=== PATIENT | female | born 1985 | race Caucasian/White ===

== ENCOUNTER 2020-04-20 16:38 | Emergency (ER) | payer OTHER ==
--- NOTE | 2020-04-20 16:45 | PDOC ---
Rapid Medical Evaluation Chief Complaint: Head/Neck problem Time Seen by Provider: 04/20/20 16:43 Medical Evaluation: Allergies Allergy/AdvReac Type Severity Reaction Status Date / Time No Known Allergies Allergy Verified 07/19/15 07:32 04/20/20 16:43 Pt with PMH of migraines presents for evaluation of numbness to the L arm, L leg, L face and R foot since yesterday at 8pm. Exam: decreased sensation to the L side Orders: labs, IV, CT Pt to proceed to the ER for further evaluation Discharge Disposition - Diagnosis Numbness - Referrals Referrals: Lanre Kwong MD [Primary Care Provider] - - Patient Instructions - Post Discharge Activity
[2020-04-20 16:49] VITALS: BP 130/77; PULSE 94; TEMP 99.2; BMI 24.9
--- NOTE | 2020-04-20 20:01 | PDOC ---
History of Present Illness - General Chief Complaint: Head/Neck problem Stated Complaint: LEFT SIDE NUMBNESS, TINGLING Time Seen by Provider: 04/20/20 16:43 - History of Present Illness Initial Comments: 04/20/20 20:01 HPI: Patient denies fever, chills, night sweats, ELLIS, vision change, chest pain, palpitations, SOB, cough, leg swelling, abdominal pain, nausea, vomiting, diarrhea, constipation, dysuria, hematuria, BPR, lightheadedness, weakness, sensory changes. PMHx: as noted above ROS: as noted SHx: Denies tobacco use; no alcohol use; no rec drugs Allergies: NKDA ROS: GENERAL/CONSTITUTIONAL: No fever or chills. No weakness. HEAD, EYES, EARS, NOSE AND THROAT: No change in vision. No ear pain or discharge. No sore throat. CARDIOVASCULAR: No chest pain or shortness of breath RESPIRATORY: No cough, wheezing, or hemoptysis. GASTROINTESTINAL: No nausea, vomiting, diarrhea or constipation. GENITOURINARY: No dysuria, frequency, or change in urination. MUSCULOSKELETAL: No joint or muscle swelling or pain. No neck or back pain. SKIN: No rash NEUROLOGIC: No headache, vertigo, loss of consciousness, or change in strength/sensation. ENDOCRINE: No increased thirst. No abnormal weight change HEMATOLOGIC/LYMPHATIC: No anemia, easy bleeding, or history of blood clots. ALLERGIC/IMMUNOLOGIC: No hives or skin allergy. PE: GENERAL: Awake, alert, and fully oriented, no acute distress HEAD: No signs of trauma, normocephalic, atraumatic EYES: EOMI, sclera anicteric, conjunctiva clear ENT: Auricles normal inspection, hearing grossly normal, nares patent, oropharynx clear without exudates. Moist mucosa NECK: Normal ROM, no lymphadenopathy LUNGS: No increased work of breathing, symmetrical chest rise, clear to auscultation bilaterally, no wheezes, crackles or rhonchi HEART: Regular rate, regular rhythm, normal S1 and S2, no murmur, peripheral pulses 2+ and equal bilaterally. ABDOMEN: Soft, nondistended, nontender. No guarding, no rebound. No masses. No CVAT MUSCULOSKELETAL: FROM NEUROLOGICAL: Cranial nerves II through XII grossly intact. Normal speech, stable gait, no focal sensorimotor deficits SKIN: Warm, Dry, normal turgor, no rashes or lesions noted Past History - Medical History Allergies/Adverse Reactions: Allergies Allergy/AdvReac Type Severity Reaction Status Date / Time No Known Allergies Allergy Verified 04/20/20 16:46 Home Medications: Ambulatory Orders Vit/Iron Fum/Folic AC [ Tablet] 1 each PO DAILY 07/19/15 Ibuprofen [Motrin -] 600 mg PO TID #90 tablet 07/21/15 Asthma: No Cancer: No Cardiac Disorders: No COPD: No Diabetes: No HTN: No Seizures: No Thyroid Disease: No - Reproductive History Is Patient Now?: No - Psycho-Social/Smoking History Smoking History: Never smoked Have you smoked in the past 12 months: No Information on smoking cessation initiated: Yes - Substance Abuse Hx (Audit-C & DAST Scrn) How often the patient has a drink containing alcohol: Never Score: In Men: 4 or > Positive; In Women: 3 or > Positive: 0 Screen Result (Pos requires Nsg. Audit-10AR): Negative In the last yr the pt used illegal drug/Rx for NonMed reason: No Score: Yes response is considered Positive: 0 Screen Result (Positive result requires Nsg. DAST-10): Negative *Physical Exam - Vital Signs Last Vital Signs Temp Pulse Resp BP Pulse Ox 99.2 F 94 H 17 130/77 100 04/20/20 16:42 04/20/20 16:42 04/20/20 16:42 04/20/20 16:42 04/20/20 16:42 Discharge - Discharge Information Clinical Impression/Diagnosis: Numbness - Follow up/Referral Referrals: Lanre Kwong MD [Primary Care Provider] - - Patient Discharge Instructions - Post Discharge Activity
--- NOTE | 2020-04-20 20:42 | PDOC ---
History of Present Illness - General Chief Complaint: Head/Neck problem Stated Complaint: LEFT SIDE NUMBNESS, TINGLING Time Seen by Provider: 04/20/20 16:43 History Source: Patient Exam Limitations: No Limitations - History of Present Illness Initial Comments: 04/20/20 20:39 HISTORY OF PRESENT ILLNESS: 34-year-old woman with past medical history of migraines presents emergency department for evaluation of pain to the left occiput radiating to left arm and left leg which she describes as a cramping sensation. She reports when her migraine starts she usually presents with left occipital pain which has a feeling of "ants crawling on me." Patient reports her symptoms started approximately 8:00 last night and she woke up this morning took sumatriptan as prescribed by her neurologist. She reports her symptoms have improved throughout the day today and is here for reevaluation. No recent travel or sick contacts. PAST MEDICAL HISTORY: See HPI SURGICAL HISTORY: Denies ALLERGIES: No known drug allergies REVIEW OF SYSTEMS General/Constitutional: Denies fever or chills. Denies weakness, weight change. HEENT: Denies change in vision. Denies ear pain or discharge. Denies sore throat. Cardiovascular: Denies chest pain or shortness of breath. Respiratory: Denies cough, wheezing, or hemoptysis. Gastrointestinal: Denies nausea, vomiting, diarrhea or constipation. Denies rectal bleeding. Genitourinary: Denies dysuria, frequency, or change in urination. Musculoskeletal: Denies joint or muscle swelling or pain. Denies neck or back pain. Skin and breasts: Denies rash or easy bruising. Neurologic: See HPI Psychiatric: Denies depression or anxiety. Endocrine: Denies increased thirst. Denies abnormal weight change. Hematologic/Lymphatic: Denies anemia, easy bleeding, or history of blood clots. Allergic/Immunologic: Denies hives or skin allergy. Denies latex allergy. PHYSICAL EXAM General Appearance: Well-appearing, appropriately dressed. No apparent distress, no intoxication. HEENT: EOMI, PERRLA, normal ENT inspection, normal voice, TMs normal, pharynx normal. No conjunctival pallor. No photophobia, scleral icterus. Neck: Supple. Trachea midline. No tenderness, rigidity, carotid bruit, stridor, lymphadenopathy, or thyromegaly. Respiratory/Chest: Lungs CTAB. No shortness of breath, chest tenderness, respiratory distress, accessory muscle use. No crackles, rales, rhonchi, stridor, wheezing, dullness Cardiovascular: RRR. S1, S2. No JVD, murmur, bradycardia, tachycardia. Neurologic: hand candy dipper II-XII intact. Fully oriented, alert. Appropriate mood/affect. Motor strength 5/5. No appreciable EOM palsy, facial droop or sensory deficit. Gait steady. Two-point discrimination is within normal limits. Normal finger- nose testing. Past History - Medical History Allergies/Adverse Reactions: Allergies Allergy/AdvReac Type Severity Reaction Status Date / Time No Known Allergies Allergy Verified 04/20/20 16:46 Home Medications: Ambulatory Orders Vit/Iron Fum/Folic AC [ Tablet] 1 each PO DAILY 07/19/15 Ibuprofen [Motrin -] 600 mg PO TID #90 tablet 07/21/15 Cephalexin Monohydrate [Keflex -] 500 mg PO BID #14 capsule 04/20/20 Asthma: No Cancer: No Cardiac Disorders: No COPD: No Diabetes: No HTN: No Seizures: No Thyroid Disease: No - Reproductive History Is Patient Now?: No - Psycho-Social/Smoking History Smoking History: Never smoked Have you smoked in the past 12 months: No Information on smoking cessation initiated: Yes - Substance Abuse Hx (Audit-C & DAST Scrn) How often the patient has a drink containing alcohol: Never Score: In Men: 4 or > Positive; In Women: 3 or > Positive: 0 Screen Result (Pos requires Nsg. Audit-10AR): Negative In the last yr the pt used illegal drug/Rx for NonMed reason: No Score: Yes response is considered Positive: 0 Screen Result (Positive result requires Nsg. DAST-10): Negative *Physical Exam - Vital Signs Last Vital Signs Temp Pulse Resp BP Pulse Ox 99.2 F 94 H 17 130/77 100 04/20/20 16:42 04/20/20 16:42 04/20/20 16:42 04/20/20 16:42 04/20/20 16:42 ED Treatment Course - LABORATORY CBC & Chemistry Diagram: 04/20/20 20:20 04/20/20 20:20 Medical Decision Making - Medical Decision Making 04/20/20 20:41 A/P: 34-year-old woman with cramping to the left side of her body This is likely initial onset of migraines which was aborted after sumatriptan. I will collect basic labs to rule out electrolyte imbalance. Patient is refusing analgesia at this time Reassess 04/20/20 21:43 Laboratory Tests 04/20/20 04/20/20 04/20/20 20:20 20:20 20:58 WBC 11.4 H RBC 4.27 Hgb 12.9 Hct 38.2 MCV 89.6 MCH 30.2 MCHC 33.8 RDW 12.9 Plt Count 219 D MPV 11.0 D Absolute Neuts (auto) 7.9 Neutrophils % 69.5 Lymphocytes % 25.8 Monocytes % 4.3 Eosinophils % 0.2 D Basophils % 0.2 Nucleated RBC % 0 Sodium 140 Potassium 4.0 Chloride 108 H Carbon Dioxide 26 Anion Gap 7 L BUN 14.3 Creatinine 0.7 Est GFR (CKD-EPI)AfAm 132.87 Est GFR (CKD-EPI)NonAf 114.64 Random Glucose 85 Calcium 9.1 Total Bilirubin 0.3 AST 19 ALT 25 Alkaline Phosphatase 79 Total Protein 8.3 H Albumin 3.7 Urine Color Yellow Urine Appearance Clear Urine pH 5.0 Ur Specific [place] 1.011 Urine Protein Negative Urine Glucose (UA) Negative Urine Ketones Negative Urine Blood Negative Urine Nitrite Negative Urine Bilirubin Negative Urine Urobilinogen 0.2 Ur Leukocyte Esterase Trace Urine WBC (Auto) 48 Urine RBC (Auto) 3 Urine Casts (Auto) 1 U Epithel Cells (Auto) 34 Urine Bacteria (Auto) 724 Urine HCG, Qual Negative Patient has a normal neurologic exam and laboratory testing is unremarkable I feel it is safe to discharge home. There is weak evidence for UTI but I will treat pending culture. I discussed the physical exam findings, ancillary test results and final diagnoses with the patient. I answered all of the patient's questions. The patient was satisfied with the care received and felt comfortable with the discharge plan and treatment plan. The patient will call their primary care physician within 24 hours to arrange follow-up and will return to the Emergency Department with any new, persistent or worsening symptoms. Portions of this note have been documented using voice recognition software. As a result, errors may occur in the inspector ball points process. Effort has been made to correct all grammatical and inspector ball points error, but some may have been missed which may produce sporadic inaccurate inspector ball points or nonsensical phrases. Discharge - Discharge Information Problems reviewed: Yes Clinical Impression/Diagnosis: UTI (urinary tract infection) Qualifiers: Urinary tract infection type: site unspecified Hematuria presence: without hematuria Qualified Code(s): N39.0 - Urinary tract infection, site not specified Condition: Fair Disposition: HOME - Admission No - Additional Discharge Information Prescriptions: Cephalexin Monohydrate [Keflex -] 500 mg PO BID #14 capsule - Follow up/Referral Referrals: Lanre Kwong MD [Primary Care Provider] - - Patient Discharge Instructions Additional Instructions: Rest, drink lots of fluids: Teas, water, soups Avoid contact with others until fevers and symptoms resolved Lots of handwashing and good hygiene Continue [id number] medications for symptomatic relief Tylenol or Motrin for fever and pain Continue all of antibiotics until completed Followup with private physician in one week for repeat urinalysis/reevaluation Return to emergency department for worsened symptoms, fevers, dehydration - Post Discharge Activity Work/Back to School Note: Back to Work
[2020-04-20 21:06] LABS: BASO % 0.2 % (0-2.0); EOS % 0.2 % (0-4.5); HEMATOCRIT 38.2 % (32.4-45.2); HEMOGLOBIN 12.9 GM/dL (10.7-15.3); LYMPH % 25.8 % (8-40); MCH 30.2 pg (25.7-33.7); MCHC 33.8 g/dl (32.0-36.0); MEAN CELL VOLUME 89.6 fl (80-96); MONO % 4.3 % (3.8-10.2); NEUT % 69.5 % (42.8-82.8); PLATELET COUNT 219 K/MM3 (134-434); RBC 4.27 M/mm3 (3.60-5.2); RDW 12.9 % (11.6-15.6); WHITE BLOOD COUNT 11.4 K/mm3 (4.0-10.0)
[2020-04-20 21:29] LABS: ALBUMIN 3.7 g/dl (3.4-5.0); BILIRUBIN,TOTAL 0.3 mg/dL (0.2-1); BLOOD UREA NITROGEN 14.3 mg/dL (7-18); CALCIUM 9.1 mg/dL (8.5-10.1); CREATININE 0.7 mg/dL (0.55-1.3); TOT PROT 8.3 g/dl (6.4-8.2)
[2020-04-20 21:37] LABS: EPI CELLS 34 /uL (0-25.1); HYALINE CASTS 1 /uL (0-3.1); URINE APPEARANCE CLEAR; URINE BACTERIA 724 /uL (0-1359); URINE BILIRUBIN NEGATIVE (NEGATIVE); URINE COLOR YELLOW; URINE GLUCOSE (UA) NEGATIVE (NEGATIVE); URINE KETONE NEGATIVE (NEGATIVE); URINE LEUK ESTERASE TRACE (NEGATIVE); URINE NITRITE NEGATIVE (NEGATIVE); URINE PROTEIN NEGATIVE (NEGATIVE); URINE RBC 3 /uL (0-23.9); URINE UROBILINOGEN 0.2 mg/dL (0.2-1.0); URINE WBC 48 /uL (0-25.8)
[2020-04-20 21:38] LABS: HCG,QUALITATIVE URINE Negative
--- NOTE | 2020-04-21 13:23 | EKG ---
Test Reason : Blood Pressure : / mmHG Vent. Rate : 078 BPM Atrial Rate : 078 BPM P-R Int : 182 ms QRS Dur : 084 ms QT Int : 406 ms P-R-T Axes : 077 013 055 degrees QTc Int : 462 ms NORMAL SINUS RHYTHM NORMAL ECG WHEN COMPARED WITH ECG OF 05-MAR-2015 13:26, NO SIGNIFICANT CHANGE WAS FOUND Confirmed by ISAI IQBAL MD ([id number]) on 04/21/2020 1:23:07 PM Referred By: Confirmed By:ISAI IQBAL MD
== END 2020-04-20 21:48 | disposition home or self-care (01) ==
LOC: JER 16:38
DX: R20.2 Paresthesia of skin (principal); N39.0 Urinary tract infection, site not specified
CPT/HCPCS: 36415; 80053; 81003; 84703; 85025; 87086; 93005; 93010; 99285-25

== ENCOUNTER 2020-04-22 13:24 | Emergency (ER) | payer OTHER ==
[2020-04-22 13:45] VITALS: BP 124/88; PULSE 98; TEMP 99; BMI 24.9
--- NOTE | 2020-04-22 14:18 | PDOC ---
History of Present Illness - General Chief Complaint: Psychiatric Stated Complaint: DIZZINESS Time Seen by Provider: 04/22/20 14:17 - History of Present Illness Initial Comments: 04/22/20 14:17 34F with PMH of migraines presents to ED with worsening migraine symptoms that haven't improved with migraine medication. She reports feeling left sided paresthesia, described as "ants crawling", that's typical with migraines but doesn't have the typical occipital ELLIS. She has some left orbital pain, with visual aura symptoms. Typically this progresses to the ELLIS but it's been constant for days w/o progression. Reports lightheadedness and photophobia. Denies fevers, syncope, falls/injuries, nausea/vomiting, or weakness SH: c/s Meds: In chart Allergies: NKDA Tob/Etoh/Rec drugs: neg x3 Informatics Manager: Mine MECCA GENERAL/CONSTITUTIONAL: No fever or chills. No weakness. HEENT: +vision flashes. GASTROINTESTINAL: No nausea, vomiting MUSCULOSKELETAL: No joint or muscle swelling or pain. No neck or back pain. NEUROLOGIC: No headache, vertigo, loss of consciousness, or change in strength/sensation. PE GENERAL: AOx3; no apparent distress HEAD: NC/AT EYES: PERRLA, EOMI, sclera anicteric, conjunctiva clear CARDIO: RRR, normal S1/S2, no murmurs, rubs, or gallops. Peripheral pulses 2+ and equal bilaterally. LUNGS: No distress, speaks full sentences, CTA bilaterally NEUROLOGICAL: CNII-XII intact. Normal speech. No focal sensorimotor deficits. Cerebellar testing intact. Ayden Capellan, PGY1 Emergency Medicine Past History - Medical History Allergies/Adverse Reactions: Allergies Allergy/AdvReac Type Severity Reaction Status Date / Time No Known Allergies Allergy Verified 04/22/20 13:35 Home Medications: Ambulatory Orders Vit/Iron Fum/Folic AC [ Tablet] 1 each PO DAILY 07/19/15 Ibuprofen [Motrin -] 600 mg PO TID #90 tablet 07/21/15 Cephalexin Monohydrate [Keflex -] 500 mg PO BID #14 capsule 04/20/20 Asthma: No Cancer: No Cardiac Disorders: No COPD: No Diabetes: No HTN: No Seizures: No Thyroid Disease: No - Reproductive History Is Patient Now?: No - Psycho-Social/Smoking History Smoking History: Never smoked Have you smoked in the past 12 months: No - Substance Abuse Hx (Audit-C & DAST Scrn) How often the patient has a drink containing alcohol: Never Score: In Men: 4 or > Positive; In Women: 3 or > Positive: 0 Screen Result (Pos requires Nsg. Audit-10AR): Negative In the last yr the pt used illegal drug/Rx for NonMed reason: No Score: Yes response is considered Positive: 0 Screen Result (Positive result requires Nsg. DAST-10): Negative *Physical Exam - Vital Signs Last Vital Signs Temp Pulse Resp BP Pulse Ox 99 F 98 H 18 124/88 100 04/22/20 13:35 04/22/20 13:35 04/22/20 13:35 04/22/20 13:35 04/22/20 13:35 Medical Decision Making - Medical Decision Making 04/22/20 15:13 34F with PMH of migraines p/w left sided paresthesias consistent with previous migraines, visual aura, but w/o headache. She reports some left sided numbness, but on exam reported no sensation deficit. Neurological exam intact. -> no head imaging indicated at this time, will give Reglan and observe for symptomatic improvement. 04/22/20 16:02 On reassessment, pt clarifies hx with 1-2 minutes of slurred speech and left sided heaviness that's resolved -> will send for emergent MRI to eval for TIA 04/22/20 17:34 Brain MRI negative for evidence of infarct. Pt stable for discharge to follow up with neurologist. Discharge - Discharge Information Problems reviewed: Yes Clinical Impression/Diagnosis: Paresthesias Condition: Stable Disposition: HOME - Admission No - Follow up/Referral Referrals: Lanre Kwong MD [Primary Care Provider] - - Patient Discharge Instructions Patient Printed Discharge Instructions: DI for Migraine Additional Instructions: You were seen in the emergency department for left arm and leg tingling, slurred speech, and weakness. You received reglan, tylenol, and IV fluids. Your brain MRI was normal, no stroke was seen. Please follow up with your upcoming Neurologist appointment. If you experience profound numbness, tingling, ELLIS, or pass out please return to the emergency department or call 911. Lo atendieron en el departamento de emergencias por hormigueo en el brazo y la pierna izquierdos, dificultad para hablar y debilidad. Recibi reglan, tylenol y lquidos por va intravenosa. La resonancia magntica de de la rosa cerebro fue normal, no se observ accidente cerebrovascular. Mouna un seguimiento con de la rosa prxima moe con el neurlogo. Si experimenta entumecimiento profundo, hormigueo, ELLIS o se desmaya, regrese al departamento de emergencias o llame al 911. Print Language: SYRIAC - Post Discharge Activity Work/Back to School Note: My Personal Safety Plan
--- OUTSIDE RECORDS SUMMARY | 2020-04-22 14:39 | XMS ---
:1985 Author Organization [facility] Support Name Relationship Address Phone [facility] [facility] Unavailable [address] [place] [address] YOJANA HESS [address] [place] [address] YOJANA HESS Spouse [address] [place] [address] Re-disclosure Warning The records that you are about to access may contain information from federally- assisted alcohol or drug abuse programs. If such information is present, then the following federally mandated warning applies: This information has been disclosed to you from records protected by federal confidentiality rules (42 CFR part 2). The federal rules prohibit you from making any further disclosure of this information unless further disclosure is expressly permitted by the written consent of the person to whom it pertains or as otherwise permitted by 42 CFR part 2. A general authorization for the release of medical or other information is NOT sufficient for this purpose. The Federal rules restrict any use of the information to criminally investigate or prosecute any alcohol or drug abuse patient.The records that you are about to access may contain highly sensitive health information, the redisclosure of which is protected by Article 27-F of the [facility] Public Health law. If you continue you may haveaccess to information: Regarding HIV / AIDS; Provided by facilities licensed or operated by the [facility] Office of Mental Health; or Provided by the [facility] Office for People With Developmental Disabilities. If such information is present, then the following [facility] mandated warning applies: This information has been disclosed to you from confidential records which are protected by state law. State law prohibits you from making any further disclosure of this information without the specific written consent of the person to whom it pertains, or as otherwise permitted by law. Any unauthorized further disclosure in violation of state law may result in a fine or assisted sentence or both. A general authorization for the release of medical or other information is NOT sufficient authorization for further disclosure. Encounters Encounter Providers Location Date Indications Data Source(s ) Outpatient [facility] 04/09/2019 eCW3 ([facility] A28 12:00:00 AM Health Care) EDT - 04/09/2019 12:00:00 AM EDT Immunizations Vaccine Date Status Description Data Source(s) New in 2011. IIV4 04/09/2019 10:22:00 completed eC W3 ([facility] EDT Health Care) Medications Medication Brand Start Product Dose Route Administrative Pharmacy [facility] Indications Reaction Description Data Name Date Form Instructions Instructions Source(s) Sumatriptan Sumatr active Sumatri ptan eCW3 50 MG Oral iptan 2019 {tabl Succinate 50 (Perez Tablet Succin 12:00: et_as [facility] Sumatriptan ate 50 00 AM _need Heal th Succinate mg EST ed} Care) 50 mg Loratadine Lorata 0 active Loratadi ne eCW3 10 MG Oral dine 2018 {tabl 10 mg ([facility] Tablet 10 mg 12:00: et} [facility] Loratadine 00 AM Health 10 mg EST Care) Loratadine Lorata 0 active Loratadi ne eCW3 10 MG Oral dine 2018 {tabl 10 mg (Perez Tablet 10 mg 12:00: et} [facility] Loratadine 00 AM Health 10 mg EST Care) Sumatriptan Sumatr 0 active Sumatri ptan eCW3 50 MG Oral iptan 2018 {tabl Succinate 50 (Perez Tablet Succin 12:00: et_as [facility] Sumatriptan ate 50 00 AM _need Heal th Succinate mg EST ed} Care) 50 mg Insurance Providers Payer name Policy type Policy ID Covered Covered alliance party's Policy P maggie / Coverage alliance party ID relationship to Ernst Inf ormation type ernst [employer] [id number] SP [id number] Problems, Conditions, and Diagnoses Code Display Name Description Problem Type Effective Dates Data Source(s) J30.2 Seasonal allergic Seasonal allergic Problem 12/09/2019 eCW3 (Perez reaction reaction 12:00:00 AM [facility]) G43.109 Migraine with Migraine with Problem 06/22/2019 eCW3 ( dson aura and without aura and without 12:00:00 AM [facility] Health status status Care) migrainosus, not migrainosus, not intractable intractable Results ID Date Data Source [id number] 01/28/2020 12:00:00 AM EDT [facility] Name Value Range Interpretation Code Description Data Melissa rce(s) Supporting Document(s ) [facility] XXX VALENCIA+probe- Imp This lab was ordered by YUDY and reported by [facility]. Procedure Social History Code Duration Value Status Description Data Source(s ) Smoking 12/09/2019 12:00:00 Never Smoker completed Never Smoker e CW3 ([facility]) Smoking 12/09/2019 12:00:00 Never Smoker completed Never Smoker e CW3 ([facility]) Vital Signs ID Date Data Source UNK Name Value Range Interpretation Code Description Data Source(s) Diastolic blood 71 mm[Hg] 71 mm[Hg] eCW3 ([facility]) Systolic blood 108 mm[Hg] 108 mm[Hg] eCW3 ([facility]) Body temperature 98.0 [degF] 98.0 [degF] eCW3 ( [facility]) Heart rate 20 /min 20 /min eCW3 ([facility]) Body mass index 25.04 kg/m2 25.04 kg/m2 eCW3 ([facility] (BMI) [Ratio] [facility]) Body weight 124 [lb_av] 124 [lb_av] eCW3 ([facility]) Body height 59 [in_i] 59 [in_i] eCW3 ([facility]) Patient Treatment Plan of Care Planned Activity Planned Date Details Description Data Source (s) Sumatriptan 50 MG Oral 06/22/2019 12:00:00 eCW3 ([facility]) Loratadine 10 MG Oral 06/22/2019 12:00:00 eCW3 ([facility])
[2020-04-22] MEDS ORDERED: METOCLOPRAMIDE HCL INJECTION 10 MG/2 ML VIAL IVPUSH ONE (14:42)
[2020-04-22] MEDS ORDERED: METOCLOPRAMIDE HCL INJECTION 10 MG/2 ML VIAL ONE (14:56)
[2020-04-22] MEDS ORDERED: diphenhydrAMINE HCL 25 MG CAPSULE (FP) PO ONE ×2 (15:26→16:41)
[2020-04-22] MEDS ORDERED: ACETAMINOPHEN 1000 MG/100 ML VIAL (NON FORMULARY) IVPB ONE (15:26)
[2020-04-22] MEDS ORDERED: SODIUM CHLORIDE 0.9% 500 ML INFUS.BAG IV ONE (15:26)
--- NOTE | 2020-04-22 16:23 | PDOC ---
Attending Attestation - Resident Resident Name: Adyen Capellan - ED Attending Attestation I have performed the following: I have examined & evaluated the patient, The case was reviewed & discussed with the resident, I agree w/resident's findings & plan - HPI HPI: 04/22/20 16:18 Healthy 34-year-old female with no significant past medical history presents for second visit to evaluate left arm and leg paresthesias which have been intermittent for 2 days. Patient was seen here on 04/20 with similar complaints in the setting of headache, diagnosed with migraine, treated accordingly, felt better and was discharged home. Patient now denies any history of headache or current complaint of headache, but reports intermittent episodes of paresthesias to her left forearm and the area around her left knee, these occur randomly and can last anywhere from minutes to hours, are not associated with any headache/vision change/speech change/weakness until around noon today, when the paresthesias began again and she also noted 15 minutes of word finding difficulty, so she presents for evaluation. Currently all symptoms resolved since placement of IV fluids, she feels well. Denies any cardiopulmonary complaints, no fevers or chills, no neck stiffness, no drug use or smoking history. Aunt had a stroke in her 50s, otherwise no pertinent family history. - Physicial Exam PE: 04/22/20 16:20 Vital signs stable Well-appearing seated comfortably in stretcher Heart is regular without murmur, no audible carotid bruit Pupils are equal round reactive to light, extraocular movements are intact, neck is supple NEURO: Mental status: The patient is alert and oriented x3. Cranial nerves: Cranial nerves II through XII are intact Motor: The upper extremities are 5 over 5 in all muscle groups. The lower extre mities are 5 over 5 in all muscle groups. No pronator drift. Sensation: Sensation is intact to light touch throughout. Cerebellar: [id number]-[id number] is normal in both upper extremities. Osah-[id number]-[id number] is normal in both lower extremities. Reflexes: 2+ and symmetric in the upper and lower extremities. Gait: Normal. Heel and toe walking are normal. Tandem gait is normal. - Medical Decision Making 04/22/20 16:22 Healthy 34-year-old female with no significant ACS or CVA risk factors presents with nonspecific partial left arm and partial left leg paresthesias over the las t 2 days, initially in the setting of headache and presumed migraine, now denies headache and reports superimposed aphasia. Neurological exam is completely normal here, low clinical suspicion for TIA or CVA, question anxiety component. No reason to suspect ACS, labs were within normal limits on previous visit on 04/20 - UA was suspicious for UTI but culture negative to date Given low suspicion and normal neurological exam, will perform rapid MRI to rule out infarct given 48 hours of symptoms If above is within normal limits, will DC with neurology follow-up and strict return criteria Patient agrees with plan NIH Stroke Scale - Last Known Well Date/Time & Onset Date Last Known Well: 04/22/20 Time Last Known Well: 12:00 - Initial Evaluation Level of consciousness: Alert Ask patient the month and their age: Answers both correctly Ask patient to open & close eyes; make fist and let go: Obeys both correctly Best gaze (horizontal eye movement): Normal Visual field testing: No visual field loss Facial paresis (Show teeth/raise eyebrows/close eyes tight): Normal symmetrical movement Motor Function: Left Arm: Normal Motor Function: Right Arm: Normal (extends arm 90 (or 45) degrees for 10 seconds without drift Motor Function: Left Leg: Normal (extends leg 30 degrees for 5 seconds without drift) Motor Function: Right Leg: Normal (extends leg 30 degrees for 5 seconds without drift) Limb Ataxia: No ataxia Sensory(Use pinprick test arms,legs,trunk,face/side to side): Normal Best language (Describe picture, name items, read sentences): No Aphasia Dysarthria (read several words): Normal articulation Extinction and Inattention: No abnormality - Total Score NIH Stroke Scale Score: 0 Discharge - Discharge Information Problems reviewed: Yes Clinical Impression/Diagnosis: Paresthesias Condition: Fair - Follow up/Referral Referrals: Lanre Kwong MD [Primary Care Provider] - - Patient Discharge Instructions - Post Discharge Activity Work/Back to School Note: My Personal Safety Plan
[2020-04-22] MEDS ORDERED: ACETAMINOPHEN INJECTION 100 ML IVPB ONE (16:41)
--- NOTE | 2020-04-24 07:06 | EKG ---
Test Reason : Blood Pressure : / mmHG Vent. Rate : 084 BPM Atrial Rate : 084 BPM P-R Int : 182 ms QRS Dur : 088 ms QT Int : 412 ms P-R-T Axes : 062 007 040 degrees QTc Int : 486 ms NORMAL SINUS RHYTHM PROLONGED QT ABNORMAL ECG WHEN COMPARED WITH ECG OF 20-APR-2020 18:25, NO SIGNIFICANT CHANGE WAS FOUND CLINICAL CORRELATION IS RECOMMENDED Confirmed by ROSA RICKETTS, ISMA ([id number]) on 04/24/2020 7:06:05 AM Referred By: Confirmed By:ISMA LEE MD
== END 2020-04-22 18:15 | disposition home or self-care (01) ==
LOC: JER 13:24
PROC: 3E0333Z Introduction of Anti-inflammatory into Peripheral Vein, Percutaneous Approach (ICD-10-PCS; principal; 2020-04-22)
PROC: 3E033GC Introduction of Other Therapeutic Substance into Peripheral Vein, Percutaneous Approach (ICD-10-PCS; 2020-04-22)
DX: R20.2 Paresthesia of skin (principal)
CPT/HCPCS: 70551-TC; 93005; 93010; 99285-25; J0131

== ENCOUNTER 2020-04-27 17:57 | Emergency (ER) | payer OTHER ==
--- NOTE | 2020-04-27 18:06 | PDOC ---
Rapid Medical Evaluation Time Seen by Provider: 04/27/20 18:03 Medical Evaluation: Allergies Allergy/AdvReac Type Severity Reaction Status Date / Time No Known Allergies Allergy Verified 04/22/20 13:35 04/27/20 18:03 I performed a brief in-person evaluation of this patient. Pt is a 34 with complaint of left shoulder pain and dizziness. No recent COVID exposure or travel. The patient was seen for similar symptoms a few weeks ago and had a UTI. Pertinent physical exam findings: speaking in full sentences. FROM of L shoulder. I have ordered the following: EKG, CXR Patient to proceed to ED for further evaluation. Discharge Disposition - Diagnosis Dizziness - Referrals - Patient Instructions - Post Discharge Activity
[2020-04-27 18:07] VITALS: BP 156/90; PULSE 101; TEMP 99; BMI 25.7
[2020-04-27 19:19] LABS: BASO % 0.1 % (0-2.0); EOS % 0.4 % (0-4.5); HEMATOCRIT 37.9 % (32.4-45.2); HEMOGLOBIN 12.9 GM/dL (10.7-15.3); LYMPH % 17.1 % (8-40); MCH 30.2 pg (25.7-33.7); MEAN PLT VOLUME 10.4 fl (7.5-11.1); MONO % 5.1 % (3.8-10.2); NEUT % 77.3 % (42.8-82.8); PLATELET COUNT 216 K/MM3 (134-434); RBC 4.26 M/mm3 (3.60-5.2); RDW 12.3 % (11.6-15.6); WHITE BLOOD COUNT 11.4 K/mm3 (4.0-10.0)
[2020-04-27 19:22] LABS: INR 1.08 (0.83-1.09); PROTHROMBIN TIME (PATIENT) 13.2 SEC (9.7-13.0)
[2020-04-27 19:39] LABS: ALBUMIN 3.7 g/dl (3.4-5.0); ALK PHOS 82 U/L (45-117); ANION GAP 5 MMOL/L (8-16); BILIRUBIN,TOTAL 0.1 mg/dL (0.2-1); CALCIUM 8.7 mg/dL (8.5-10.1); CHLORIDE 105 mmol/L (98-107); CO2 27 mmol/L (21-32); CREATININE 0.9 mg/dL (0.55-1.3); GLUCOSE,RANDOM 112 mg/dL (74-106); POTASSIUM 4.3 mmol/L (3.5-5.1); SGOT/AST 22 U/L (15-37); SGPT/ALT 30 U/L (13-61); SODIUM 137 mmol/L (136-145); TOT PROT 8.3 g/dl (6.4-8.2)
--- NOTE | 2020-04-27 20:11 | PDOC ---
History of Present Illness - General Chief Complaint: Pain Stated Complaint: HTN/ LS SHOULDER PAIN Time Seen by Provider: 04/27/20 18:03 - History of Present Illness Initial Comments: 04/27/20 20:09 34-year-old female no comorbidities presents for evaluation of left-sided neck pain which radiated into her left shoulder earlier today. Past History - Medical History Allergies/Adverse Reactions: Allergies Allergy/AdvReac Type Severity Reaction Status Date / Time No Known Allergies Allergy Verified 04/27/20 18:06 Home Medications: Ambulatory Orders Vit/Iron Fum/Folic AC [ Tablet] 1 each PO DAILY 07/19/15 Ibuprofen [Motrin -] 600 mg PO TID #90 tablet 07/21/15 Cephalexin Monohydrate [Keflex -] 500 mg PO BID #14 capsule 04/20/20 Asthma: No Cancer: No Cardiac Disorders: No COPD: No Diabetes: No HTN: No Seizures: No Thyroid Disease: No - Reproductive History Is Patient Now?: No - Immunization History Immunization Up to Date: Yes - Psycho-Social/Smoking History Smoking History: Never smoked Have you smoked in the past 12 months: No Information on smoking cessation initiated: No - Substance Abuse Hx (Audit-C & DAST Scrn) How often the patient has a drink containing alcohol: Never Score: In Men: 4 or > Positive; In Women: 3 or > Positive: 0 Screen Result (Pos requires Nsg. Audit-10AR): Negative In the last yr the pt used illegal drug/Rx for NonMed reason: No Score: Yes response is considered Positive: 0 Screen Result (Positive result requires Nsg. DAST-10): Negative Review of Systems - Review of Systems Cardiac (ROS): Yes: See HPI *Physical Exam - Vital Signs Last Vital Signs Temp Pulse Resp BP Pulse Ox 99.0 F 101 H 18 156/90 100 04/27/20 18:05 04/27/20 18:05 04/27/20 18:05 04/27/20 18:05 04/27/20 18:05 - Physical Exam General Appearance: Yes: Nourished, Appropriately Dressed. No: Apparent Distress, Disheveled HEENT: positive: Normal ENT Inspection, Normal Voice, Symmetrical Neck: positive: Trachea midline, Supple Respiratory/Chest: positive: Normal Breath Sounds. 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, Fully Oriented, Alert, Normal Mood/Affect ED Treatment Course - LABORATORY CBC & Chemistry Diagram: 04/27/20 18:30 04/27/20 18:30 - ADDITIONAL ORDERS Additional order review: Laboratory Results 04/27/20 04/27/20 04/27/20 18:30 18:30 18:30 PT with INR INR D-Dimer < 215 Sodium 137 Potassium 4.3 Chloride 105 Carbon Dioxide 27 Anion Gap 5 L BUN 12.0 Creatinine 0.9 Est GFR (CKD-EPI)AfAm 98.06 Est GFR (CKD-EPI)NonAf 84.60 Random Glucose 112 H Calcium 8.7 Total Bilirubin 0.1 L AST 22 ALT 30 Alkaline Phosphatase 82 Creatine Kinase 157 Creatine Kinase Index 0.8 CK-MB (CK-2) 1.3 Troponin I < 0.02 Total Protein 8.3 H Albumin 3.7 Serum , Qual Negative 04/27/20 18:30 PT with INR 13.20 H INR 1.08 D-Dimer Sodium Potassium Chloride Carbon Dioxide Anion Gap BUN Creatinine Est GFR (CKD-EPI)AfAm Est GFR (CKD-EPI)NonAf Random Glucose Calcium Total Bilirubin AST ALT Alkaline Phosphatase Creatine Kinase Creatine Kinase Index CK-MB (CK-2) Troponin I Total Protein Albumin Serum , Qual 04/27/20 18:30 RBC 4.26 MCV 89.0 MCHC 34.0 RDW 12.3 MPV 10.4 Neutrophils % 77.3 Lymphocytes % 17.1 D Monocytes % 5.1 Eosinophils % 0.4 D Basophils % 0.1 Medical Decision Making - Medical Decision Making 04/27/20 20:09 Benign work-up most likely anxiety. We will have patient follow-up with primary care physician I have reviewed the pathophysiology with the patient. They are in agreement with the treatment plan all questions were answered to their satisfaction. Understanding for follow-up without fail was also conveyed to the patient. Again they are in agreement. 04/27/20 20:10 EKG reviewed with attending normal chest x-ray Discharge - Discharge Information Problems reviewed: Yes Clinical Impression/Diagnosis: Dizziness, Anxiety Condition: Stable Disposition: HOME - Admission No - Follow up/Referral Referrals: Lanre Kwong MD [Primary Care Provider] - - Patient Discharge Instructions Additional Instructions: Return to the emergency room at any time for further issues and without fail follow-up with your primary care physician 1 to 2 days for further evaluation and treatment options. Your work-up today was normal - Post Discharge Activity
--- NOTE | 2020-04-28 13:36 | EKG ---
Test Reason : Blood Pressure : / mmHG Vent. Rate : 091 BPM Atrial Rate : 091 BPM P-R Int : 158 ms QRS Dur : 080 ms QT Int : 378 ms P-R-T Axes : 068 014 045 degrees QTc Int : 464 ms NORMAL SINUS RHYTHM NORMAL ECG WHEN COMPARED WITH ECG OF 22-APR-2020 17:15, NO SIGNIFICANT CHANGE WAS FOUND Confirmed by ISAI IQBAL MD ([id number]) on 04/28/2020 1:35:57 PM Referred By: Confirmed By:ISAI IQBAL MD
== END 2020-04-27 20:18 | disposition home or self-care (01) ==
LOC: JERFT 17:57 → JER 17:57 → JERFT 20:18
DX: R42 Dizziness and giddiness (principal)
CPT/HCPCS: 36415; 71046-TC-FY; 80053; 82550; 82553; 84484; 84703; 85025; 85379; 85610; 93005; 93010; 99285-25

== ENCOUNTER → 2021-06-14 | Day surgery (SDC) | payer OTHER | END | disposition home or self-care (01) | LOC: JRADUS-SUR 12:16 → JRADUS 12:16 | PROVIDERS: ATTEND Registered Nurse | PROC: 0H9U3ZX Drainage of Left Breast, Percutaneous Approach, Diagnostic (ICD-10-PCS; principal; 2021-06-14) | DX: N63.20 Unspecified lump in the left breast, unspecified quadrant (principal) | CPT/HCPCS: 19083; 76642-TC-LT ==

== ENCOUNTER 2023-07-25 13:09 | Emergency (ER) | payer OTHER ==
[2023-07-25 13:23] VITALS: BMI 29.9
[2023-07-25] MEDS ORDERED: SODIUM CHLORIDE 1,000 ML IV STA (14:32)
[2023-07-25 14:58] LABS: BASO % 0.1 % (0-2.0); EOS % 0.3 % (0-4.5); HEMATOCRIT 38.2 % (32.4-45.2); HEMOGLOBIN 12.8 GM/dL (10.7-15.3); MCH 31.1 pg (25.7-33.7); MCHC 33.4 g/dl (32.0-36.0); MEAN CELL VOLUME 93.1 fl (80-96); MEAN PLT VOLUME 9.8 fl (7.5-11.1); MONO % 7.3 % (3.8-10.2); NEUT % 75.3 % (42.8-82.8); PLATELET COUNT 178 10^3/uL (134-434); RDW 13.1 % (11.6-15.6); WHITE BLOOD COUNT 9.5 K/mm3 (4.0-10.0)
[2023-07-25 15:02] LABS: PH,URINE 6.5 (5.0-8.0); URINE APPEARANCE CLEAR; URINE BILIRUBIN NEGATIVE (NEGATIVE); URINE COLOR YELLOW; URINE GLUCOSE (UA) NEGATIVE (NEGATIVE); URINE KETONE NEGATIVE (NEGATIVE); URINE LEUK ESTERASE 2+ (NEGATIVE); URINE NITRITE NEGATIVE (NEGATIVE); URINE PROTEIN NEGATIVE (NEGATIVE); URINE UROBILINOGEN 0.2 mg/dL (0.2-1.0)
[2023-07-25 15:21] LABS: POTASSIUM 3.9 mmol/L (3.5-5.1)
[2023-07-25 15:23] LABS: CALCIUM 8.8 mg/dL (8.5-10.1)
[2023-07-25 15:24] LABS: ALBUMIN 2.7 g/dl (3.4-5.0); BLOOD UREA NITROGEN 10.2 mg/dL (7-18)
[2023-07-25 15:27] LABS: CREATININE 0.6 mg/dL (0.55-1.3)
[2023-07-25 15:28] LABS: BILIRUBIN,TOTAL 0.2 mg/dL (0.2-1)
[2023-07-25 15:29] LABS: TOT PROT 7.2 g/dl (6.4-8.2)
[2023-07-25] MEDS ORDERED: ACETAMINOPHEN 325 MG TABLET (FP) PO ONE (15:30)
[2023-07-25 15:40] LABS: URINE RBC 7 /uL (0-23.9); URINE WBC 152 /uL (0-25.8)
[2023-07-25 15:41] LABS: EPI CELLS 17 /uL (0-25.1); HYALINE CASTS 1 /uL (0-3.1); URINE BACTERIA 399 /uL (0-1359)
[2023-07-25] MEDS ORDERED: CEFTRIAXONE 1 GM in DEXTROSE 5%-WATER - 100 ML IVPB ONE (15:54)
[2023-07-25] MEDS ORDERED: ACETAMINOPHEN 325 MG TABLET (FP) ONE (15:55)
[2023-07-25] MEDS ORDERED: CEFTRIAXONE 1 GM/50 ML BAG ONE (15:59)
[2023-07-25 17:46] VITALS: BP 112/64; PULSE 78; RESP 17; TEMP 99.1
== END 2023-07-25 18:15 | disposition home or self-care (01) ==
LOC: JER 13:09
PROC: 3E03329 Introduction of Other Anti-infective into Peripheral Vein, Percutaneous Approach (ICD-10-PCS; principal; 2023-07-25)
PROC: 3E0337Z Introduction of Electrolytic and Water Balance Substance into Peripheral Vein, Percutaneous Approach (ICD-10-PCS; 2023-07-25)
DX: O26.893 Other specified pregnancy related conditions, third trimester (principal); R42 Dizziness and giddiness; R11.0 Nausea; R05.9 Cough, unspecified; R09.81 Nasal congestion; O23.43 Unspecified infection of urinary tract in pregnancy, third trimester; N39.0 Urinary tract infection, site not specified; R74.01 Elevation of levels of liver transaminase levels; H53.8 Other visual disturbances; Z3A.33 33 weeks gestation of pregnancy
CPT/HCPCS: 36415; 80053; 81003; 85025; 93005; 93010; 99284-25

== ENCOUNTER 2023-09-04 08:05 | Inpatient (IN) | payer OTHER ==
[2023-09-04] MEDS: ELECTROLYTE-148 SOLN 500 ML IV ONE (08:30)
[2023-09-04] MEDS ORDERED: OXYTOCIN 30 UNITS in 0.9% NS 30 UNIT/500 ML INFUS.BAG IVPB ONE (08:56)
[2023-09-04 09:18] VITALS: BMI 31.2
[2023-09-04] MEDS ORDERED: LIGASURE IMPACT TP ONE (09:35)
[2023-09-04] MEDS ORDERED: morphine SULFATE/PF 1 MG/2 ML (2cc Syringe - QUVA) ONE (09:49)
[2023-09-04] MEDS ORDERED: FENTANYL CITRATE/PF 50 MCG/ML VIAL ONE (09:49)
[2023-09-04] MEDS ORDERED: DEXAMETHASONE SOD PHOSPHATE 4 MG/1 ML VIAL ONE (09:53)
[2023-09-04] MEDS ORDERED: ceFAZolin SODIUM 1 GM VIAL ONE ×2 (09:53)
[2023-09-04] MEDS ORDERED: KETOROLAC TROMETHAMINE 30 MG/1 ML VIAL ONE (09:53)
[2023-09-04] MEDS ORDERED: ONDANSETRON 4 MG/2 ML VIAL ONE ×2 (09:53)
[2023-09-04] MEDS: CITRIC ACID/SODIUM CITRATE 30 ML UNIT-DOSE CUP PO ONE (10:27)
[2023-09-04] MEDS: DEXTROSE 5%-LACTATED RINGERS 1,000 ML IV SCH (10:28)
[2023-09-04] MEDS ORDERED: ONDANSETRON 4 MG/2 ML VIAL IVPUSH PRN (11:06)
[2023-09-04] MEDS ORDERED: OXYTOCIN 20 UNITS in 0.9% NS 20 UNIT/1,000 ML INFUS.BAG IV ONE (11:07)
[2023-09-04] MEDS: OXYTOCIN 20 UNITS in 0.9% NS 20 UNIT/1,000 ML INFUS.BAG IV SCH (11:10)
[2023-09-04] MEDS ORDERED: ACETAMINOPHEN INJECTION 100 ML IVPB ONE (13:15)
[2023-09-04] MEDS: ACETAMINOPHEN 1000 MG/100 ML BAG IVPB ONE (13:20)
[2023-09-05] MEDS: IBUPROFEN 800 MG/8 ML IJ IVPB PRN (00:53)
[2023-09-05] MEDS: ACETAMINOPHEN 325 MG TABLET (FP) PO PRN (05:40)
[2023-09-05] MEDS: SIMETHICONE 80 MG TAB.CHEW (FP) PO PRN (05:41)
[2023-09-05 08:21] LABS: BASO % 0.2 % (0-2.0); EOS % 0.6 % (0-4.5); HEMOGLOBIN 10.5 GM/dL (10.7-15.3); LYMPH % 23.7 % (8-40); MCH 31.6 pg (25.7-33.7); MEAN PLT VOLUME 10.3 fl (7.5-11.1); MONO % 6.5 % (3.8-10.2); PLATELET COUNT 130 10^3/uL (134-434); RBC 3.33 M/mm3 (3.60-5.2); RDW 13.9 % (11.6-15.6); WHITE BLOOD COUNT 9.9 K/mm3 (4.0-10.0)
[2023-09-05] MEDS: IBUPROFEN 600 MG TABLET (FP) PO PRN (08:44)
[2023-09-05] MEDS: BISACODYL 10 MG SUPP.RECT RC PRN (21:58)
[2023-09-06] MEDS: oxyCODONE HCL 5 MG TABLET PO PRN (19:36)
[2023-09-07 07:57] LABS: BASO % 0.2 % (0-2.0); EOS % 1.7 % (0-4.5); HEMATOCRIT 30.4 % (32.4-45.2); HEMOGLOBIN 10.5 GM/dL (10.7-15.3); LYMPH % 34.8 % (8-40); MCH 32.1 pg (25.7-33.7); MCHC 34.5 g/dl (32.0-36.0); MEAN PLT VOLUME 10.1 fl (7.5-11.1); MONO % 7.4 % (3.8-10.2); NEUT % 55.9 % (42.8-82.8); PLATELET COUNT 146 10^3/uL (134-434); RBC 3.27 M/mm3 (3.60-5.2); RDW 13.5 % (11.6-15.6)
[2023-09-07 08:36] VITALS: BP 112/61; PULSE 60; RESP 16; TEMP 98.4
== END 2023-09-07 13:05 | disposition home or self-care (01) | DRG 540 ==
LOC: JLDR 08:05 → J3W 13:25
PROVIDERS: ADMIT Student in an Organized Health Care Education/Training Program; ATTEND Student in an Organized Health Care Education/Training Program
PROC: 10D00Z1 Extraction of Products of Conception, Low, Open Approach (ICD-10-PCS; principal; 2023-09-04)
PROC: 0UT70ZZ Resection of Bilateral Fallopian Tubes, Open Approach (ICD-10-PCS; 2023-09-04)
DX: O34.211 Maternal care for low transverse scar from previous cesarean delivery (principal); Z3A.39 39 weeks gestation of pregnancy; Z37.0 Single live birth; Z30.2 Encounter for sterilization
CPT/HCPCS: 36415; 80053; 81003; 85025; 85610; 86780; 86850; 86900; 86901; 88305-TC; 88307-TC; 94010; J0131

== ENCOUNTER 2023-09-09 15:36 | Emergency (ER) | payer OTHER ==
[2023-09-09 16:10] VITALS: BP 134/86; PULSE 72; RESP 18; TEMP 98.2; BMI 30.2
[2023-09-09 16:59] LABS: BASO % 0.4 % (0-2.0); EOS % 0.8 % (0-4.5); HEMATOCRIT 35.9 % (32.4-45.2); HEMOGLOBIN 12.3 GM/dL (10.7-15.3); LYMPH % 18.3 % (8-40); MCH 31.9 pg (25.7-33.7); MCHC 34.2 g/dl (32.0-36.0); MEAN CELL VOLUME 93.1 fl (80-96); MEAN PLT VOLUME 8.9 fl (7.5-11.1); NEUT % 75.5 % (42.8-82.8); PLATELET COUNT 219 10^3/uL (134-434); RBC 3.86 M/mm3 (3.60-5.2); RDW 13.7 % (11.6-15.6); WHITE BLOOD COUNT 9.2 K/mm3 (4.0-10.0)
[2023-09-09 17:05] LABS: INR 0.97 (0.83-1.09); PROTHROMBIN TIME (PATIENT) 11.2 SEC (9.7-13.0)
[2023-09-09 17:07] LABS: ACTIVATED PTT 30.9 SECONDS (25.2-36.5)
[2023-09-09 17:24] LABS: POTASSIUM 4.2 mmol/L (3.5-5.1)
[2023-09-09 17:26] LABS: ALBUMIN 2.5 g/dl (3.4-5.0); BLOOD UREA NITROGEN 14.3 mg/dL (7-18); CALCIUM 8.6 mg/dL (8.5-10.1)
[2023-09-09 17:30] LABS: CREATININE 0.6 mg/dL (0.55-1.3)
[2023-09-09 17:31] LABS: BILIRUBIN,TOTAL 0.2 mg/dL (0.2-1); TOT PROT 6.4 g/dl (6.4-8.2)
[2023-09-09 17:41] LABS: EPI CELLS >36 /uL (0-25.1); HYALINE CASTS 2 /uL (0-3.1); PH,URINE 5.5 (5.0-8.0); URINE APPEARANCE CLEAR; URINE BACTERIA 9 /uL (0-1359); URINE BILIRUBIN NEGATIVE (NEGATIVE); URINE COLOR YELLOW; URINE GLUCOSE (UA) NEGATIVE (NEGATIVE); URINE KETONE NEGATIVE (NEGATIVE); URINE LEUK ESTERASE 1+ (NEGATIVE); URINE NITRITE NEGATIVE (NEGATIVE); URINE PROTEIN NEGATIVE (NEGATIVE); URINE RBC 5 /uL (0-23.9); URINE UROBILINOGEN 0.2 mg/dL (0.2-1.0); URINE WBC 89 /uL (0-25.8)
[2023-09-09 17:50] LABS: CREATININE, URINE RANDOM < 13.0 mg/dL (30-150)
== END 2023-09-09 19:21 | disposition home or self-care (01) ==
LOC: JER 15:36
DX: I10 Essential (primary) hypertension (principal); R42 Dizziness and giddiness; R51.9 Headache, unspecified
CPT/HCPCS: 36415; 71046-TC-FY; 80053; 81003; 82570; 83735; 84156; 85025; 85610; 85730; 86850; 86900; 86901; 87086; 93005; 93010; 99285-25